=== PATIENT | male | born 1980 | race Caucasian/White ===

== ENCOUNTER → 2024-08-08 12:09 | Outpatient (CLI) | payer OTHER, SELFPAY ==
--- NOTE | 2024-08-08 12:14 | DI.ECHO.S_ITS ---
[facility] : : [address] : : [place] : : [id number] : : Phone: [phone] Echocardiogram Report + + :Name: TEREZA ACEVES Study Date: 08/08/2024 Height: 72 in : :Hospital ReadingLocation: Weight: 420 lb : : Gender: Male BSA: 2.9 m2 : :: 1980 Age: 44 yrs BP: 110/64 mmHg: :Reason For Study: HEART FAILURE : :Ordering Physician: ALIA, : :ELLIE Performed By: Yesica Wallace : :Referring: ELLIE ROJO : + + Interpretation Summary The study quality was technically difficult. The ejection fraction is estimated to be 60-65%. There are no obvious focal wall motion abnormalities noted but poor endocardial definition reduces the sensitivity for the detection of such. No significant valvular dz. noted on this poor quality exam. Procedure: A two-dimensional transthoracic echocardiogram with color flow and Doppler was performed. The study quality was technically difficult. The study quality was technically limited. There is no prior echocardiogram noted for this patient. A contrast injection of Definity was performed to improve assessment of LV function. The patient was in sinus rhythm with heart rates between 78-91 bpm during the exam. Left Ventricle: The left ventricle is normal in size. Left ventricular wall thickness is mildly increased. The ejection fraction is estimated to be 60- 65%. There are no obvious focal wall motion abnormalities noted but poor endocardial definition reduces the sensitivity for the detection of such. Right Ventricle: The right ventricle is not well visualized. Atria: The left atrium grossly appears normal in size. The right atrium grossly appears normal in size. Mitral Valve: The mitral valve is grossly normal. There is no mitral regurgitation noted. Aortic Valve: The aortic valve is not well visualized. There is no hemodynamically significant valvular aortic stenosis. No aortic regurgitation is present. Tricuspid Valve: The tricuspid valve is not well visualized. There is trace tricuspid regurgitation. Pulmonary artery pressures cannot be estimated because of the lack of a measurable TR jet velocity. Pulmonic Valve: The pulmonic valve is not well visualized. There is a trace or physiologic amount of pulmonic regurgitation. Great Vessels: The dimensions of the ascending aorta are normal. The IVC is of normal diameter and collapses greater than 50% with a sniff. This suggests a low right atrial pressure of 3 mm Hg. Pericardium/ Pleura There is no pericardial effusion. There is no pleural effusion. MMode/2D Measurements & Calculations LVIDd: 5.3 cm LVOT diam: 2.4 cm LVIDs: 3.4 cm asc Aorta Diam: 3.4 cm FS: 35.5 % EPSS: 0.78 cm IVSd: 1.2 cm LVPWd: 1.1 cm LV ferrara. diameter/BSA (cm/m^2): 1.8 LV sys. diameter/BSA (cm/m^2): 1.2 LA dimension: 4.3 cm IVC diam: 0.74 cm Doppler Measurements & Calculations Ao V2 max: 101.2 cm/sec LVOT Max Efe: 86.4 cm/sec Ao V2 mean: 67.6 cm/sec LV V1 max P.0 mmHg Ao max P.1 mmHg LV V1 VTI: 16.8 cm Ao mean P.1 mmHg ESTHER(I,D): 4.2 cm2 Ao V2 VTI: 18.5 cm ESTHER(V,D): 3.9 cm2 sev ratio: 0.90 ESTHER indexed to BSA (cm^2/m^2): 1.4 MV E max efe: 55.8 cm/sec PA V2 max: 84.6 cm/sec MV A max efe: 60.5 cm/sec PA V2 mean: 63.8 cm/sec MV E/A: 0.92 PA mean P.7 mmHg Med Peak E' Efe: 8.7 cm/sec PA pr(Accel): 28.9 mmHg E/E' med: 6.4 Lat Peak E' Efe: 9.1 cm/sec E/E' lat: 6.1 E/e' average: 6.3 MV dec time: 0.22 sec SV(LVOT): 77.4 ml Reading Physician:08:59 AM
[2024-08-08 13:17] LABS: Alanine Aminotransferase 34 IU/L (<50); Albumin 4.3 g/dL (3.5-5.0); Albumin Globulin Ratio 1.3 (1.0-2.8); Alkaline Phosphatase 60 U/L (38-126); Aspartate Aminotransferase 35 IU/L (17-59); BUN Creatinine Ratio 21.1 (6-22); Bilirubin Total 0.7 mg/dL (0.2-1.3); Blood Urea Nitrogen 42 mg/dL (9-20); Calcium 9.4 mg/dL (8.4-10.2); Carbon Dioxide 26 mmol/L (22-32); Chloride 103 mmol/L (98-107); Estimated Glomerular Filt Rate 42 mL/min (>60); Globulin 3.2 g/dL (1.7-4.1); Glucose 108 mg/dL (70-100); HEMOLYSIS < 15 (0-50); Sodium 139 mmol/L (137-145); Total Protein 7.5 g/dL (6.3-8.2)
[2024-08-08 13:19] LABS: Appearance Urine UA CLEAR; Bilirubin Urine UA NEGATIVE (NEGATIVE); Color Urine UA YELLOW; Glucose Urine UA NEGATIVE (Negative); Ketones Urine UA NEGATIVE (NEGATIVE); Leukocyte Esterase Urine UA NEGATIVE (NEGATIVE); Nitrite Urine UA NEGATIVE (Negative); Occult Blood Urine UA NEGATIVE (Negative); Protein Urine UA NEGATIVE (Negative); Specific Gravity Urine UA 1.025 (1.000-1.035); Urobilinogen Urine UA 0.2 E.U./dL (0.2); pH Urine UA 5.5 (4.5-8.0)
[2024-08-08 13:20] LABS: Urine Volume 10mL (spun)
[2024-08-08 13:22] LABS: Bacteria Urine None Seen; Culture Indicated Urine Cult Not Indicated; RBC Urine None Seen (0-5/HPF); Squamous Epithelial Cell Urine None Seen (0-5/HPF); WBC Urine None Seen (0-5/HPF)
== END ==
PROVIDERS: Referring Provider Chiropractor; Visit Provider Chiropractor
DX: E11.9 Type 2 diabetes mellitus without complications (principal); I50.9 Heart failure, unspecified
CPT/HCPCS: 36415; 80053; 81001; C8929; Q9957